=== PATIENT | male | born 1965 | race Caucasian/White ===

== ENCOUNTER → 2025-09-26 | Outpatient (CLI) | payer OTHER ==
[~2025-09-26] MED LIST: ASPI81TA26 PO; CIAL5TAB PO; JANU50TA25 PO; LISI20TA33 PO
== END ==
LOC: M WUC 10:41
PROVIDERS: ATTEND Internal Medicine
DX: M25.511 Pain in right shoulder (principal); M25.531 Pain in right wrist; M19.011 Primary osteoarthritis, right shoulder; R93.6 Abnormal findings on diagnostic imaging of limbs

== ENCOUNTER → 2025-09-29 | Outpatient (REF) | payer OTHER | LOC: M LAB REF 17:16 | PROVIDERS: ATTEND Internal Medicine | DX: M25.50 Pain in unspecified joint (principal); Z11.9 Encounter for screening for infectious and parasitic diseases, unspecified ==